=== PATIENT | male | born 1980 | race Caucasian/White ===

== ENCOUNTER → 2019-12-27 | Outpatient (REF) | payer OTHER, SELFPAY | LOC: M WUC 15:50 | PROVIDERS: ATTEND Nurse Practitioner Family | DX: Z03.818 Encounter for observation for suspected exposure to other biological agents ruled out (principal); Z11.59 Encounter for screening for other viral diseases ==

== ENCOUNTER 2022-08-04 16:47 | Emergency (ER) | payer SELFPAY ==
[~2022-08-04] VITALS: Ht 170.2 cm; Wt 63.9 kg
[2022-08-04] MEDS ORDERED: TETRACAINE 0.5% OPHTH SOLN 4ML OS ONE (17:10)
[2022-08-04] MEDS ORDERED: FLUORESCEIN OPHTH 1MG STRIP OS ONE (17:10)
[2022-08-04 21:33] VITALS: BP 123/68
== END 2022-08-05 02:07 | disposition left against medical advice (07) ==
LOC: M ED 16:47
DX: Z53.21 Procedure and treatment not carried out due to patient leaving prior to being seen by health care provider (principal)